=== PATIENT | female | born 1990 | race Caucasian/White ===

== ENCOUNTER → 2017-08-25 | Outpatient (CLI) | payer BC ==
[2015-06-06 03:00] VITALS: BP 127/74
[~2017-08-25] MED LIST: INSU100C4 SQ; LEVO25TA4 PO
--- NOTE | 2017-08-25 15:07 | RAD ---
Pelvic ultrasound 08/25/2017 Indication: Persistent pelvic pain Comparison study: None Discussion: Ultrasound evaluation of the pelvis was performed transabdominally and transvaginally. Static images were submitted to PACS. Findings: The uterus measures 7.8 x 4.5 x 3.5 cm. Endometrial thickness is best seen transvaginally measuring approximately 9 mm. Correlate with phase of the menstrual cycle. The uterus is otherwise unremarkable in appearance. Trace amount of free fluid is seen in the cul-de-sac most commonly physiologic premenopausal patient.. The right ovary measures 2.5 x 1.2 1.7 cm and is unremarkable in appearance. The left ovary measures 4.1 x 3.1 x 3.2 cm including a 3.3 cm simple appearing cyst. Blood flow the ovaries is noted on color Doppler imaging with spectral analysis. Visualized portions of the bladder is grossly unremarkable. Impression: 1. 3.3 cm simple appearing cyst, left ovary 2. Trace amount of free fluid in the pelvis which is most commonly physiologic in a premenopausal patient 3. Otherwise unremarkable pelvic ultrasound
== END | disposition home or self-care (01) ==
LOC: US 13:05
PROVIDERS: ATTEND Physician Assistant Medical
DX: R10.2 Pelvic and perineal pain (principal); F17.200 Nicotine dependence, unspecified, uncomplicated; Z72.89 Other problems related to lifestyle
CPT/HCPCS: 76830; 76856

== ENCOUNTER → 2018-02-28 | Outpatient (CLI) | payer BC ==
[2015-06-06 03:00] VITALS: BP 127/74
--- NOTE | 2018-02-28 14:53 | RAD ---
EXAM: PA and Lateral Views of the Chest DATE: 02/28/2018 10:50 AM INDICATION: SCHOOL PHYSICAL, PT WAS SHIELDED COMPARISON: No Prior FINDINGS: The heart is not enlarged. Mediastinal and hilar contours are normal. No focal parenchymal airspace opacity. No pleural effusion or pneumothorax. IMPRESSION: 1. No radiographic evidence for acute cardiopulmonary process. Electronically signed by: Rick Chambers MD (02/28/2018 2:50 PM) [facility]
== END | disposition home or self-care (01) ==
LOC: PMG 10:38
PROVIDERS: ATTEND Physician Assistant Medical
DX: Z02.0 Encounter for examination for admission to educational institution (principal)
CPT/HCPCS: 71046

== ENCOUNTER 2021-07-18 21:17 | Emergency (ER) | payer BC ==
[~2021-07-18] VITALS: Ht 167.6 cm; Wt 78.2 kg
--- NOTE | 2021-07-18 21:23 | PHYS DOC ---
Past History Past Medical History: Diabetes, Other Past Surgical History: Tonsillectomy, Other Alcohol Use: Occasionally Drug Use: None General Adult HPI: HPI: ",, I ve got an ear ache.. ".. My Lt ear.. I went to Urgent care and they sta rted me on Augmentin 875 and Cipro eardrops... But now I noticed to have blood and drainage from the left ear.... I am worried about having an mastoiditis'''" Patient is a 31 year old female who presents with above hx and complaints left otitis. Currently on Augmentin 875 and Cipro eardrops. Patient denies any history immunosuppression. Patient is known diabetic and sugars have been in the 300s. No recent travel. No specific ill contacts. No history of prior otitis media or mastoiditis. Patient normally follows with [facility] for care.. Review of Systems: Review of Systems: Constitutional: Denies fever or chills Eyes: Denies change in visual acuity HENT: Denies nasal congestion or sore throat Lt. otitis Respiratory: Denies cough or shortness of breath Cardiovascular: Denies chest pain or edema GI: Denies abdominal pain, nausea, vomiting, bloody stools or diarrhea : Denies dysuria Musculoskeletal: Denies back pain or joint pain Integument: Denies rash Neurologic: Denies headache, focal weakness or sensory changes Endocrine: Denies polyuria or polydipsia Lymphatic: Denies swollen glands Psychiatric: Denies depression or anxiety Family History: Family History: Noncontributory to presentation Current Medications: Current Meds: See nursing for home meds Allergies: Allergies: Allergies Coded Allergies Type Severity Reaction Last Updated Verified aspirin Allergy Unknown 05/31/14 No Uncoded Allergies Type Severity Reaction Last Updated Verified shanell Adverse Reaction Unknown 05/31/14 Physical Exam: PE: Constitutional: in acute distress, non-toxic appearance. [] HENT: Normocephalic, atraumatic, right external ears normal, oropharynx moist, no oral exudates, nose normal. TM on Lt has rupture with drainage of pus. Lt. Mastoid area somewhat tender. Does have adenopathy at angle of mandible. Eyes: PERRLA, EOMI, conjunctiva normal, no discharge. [] Neck: Normal range of motion, no tenderness, supple, no stridor. [] Cardiovascular:Heart rate regular rhythm, no murmur [] Lungs & Thorax: Bilateral breath sounds equal at apex auscultation [] Abdomen: Bowel sounds normal, soft, no tenderness, no masses, no pulsatile mas ses. [] Skin: Warm, dry, no erythema, no rash. [] Back: No tenderness, no CVA tenderness. [] Extremities: No tenderness, no cyanosis, no clubbing, ROM intact, no edema. [] Neurologic: Alert and oriented X 3, normal motor function, normal sensory function, no focal deficits noted. [] Psychologic: Affect normal, judgement normal, mood normal. [] EKG: EKG: [] Radiology/Procedures: Radiology/Procedures: [][place] [address] IMAGING REPORT Signed PATIENT: CAIO MARI ACCOUNT: [id number] : 1990 LOCATION: ER AGE: 31 SEX: F EXAM STATUS: REG ER ORD. PHYSICIAN: JANA BROWN MD REASON: CT mastoid- otitis, concern mastoid extension in Diabetic PROCEDURE: CT MAXILLOFACIAL WO CONTRAST EXAM: CT temporal bones without contrast. HISTORY: Diabetes. Mastoiditis. TECHNIQUE: CT of the temporal bones was performed without intravenous contrast. One or more of the following individualized dose reduction techniques were utilized for this examination: 1. Automated exposure control. 2. Adjustment of the mA and/or kV according to patient size. 3. Use of iterative reconstruction technique. COMPARISON: None. FINDINGS: There is fluid in the left middle ear cavity extending to the mastoid antrum. The more peripheral left mastoid air cells are normally aerated. No erosive change is identified. There is no swelling overlying the left mastoid or along the external auditory canal. The ossicles appear intact. The left cochlea and semicircular canals appear intact. On the right, the middle ear and mastoid air cells are normally aerated. The ossicles are intact. The cochlea and semicircular canals are intact. The paranasal sinuses are clear. Both ostiomeatal units are patent. Limited images of the orbits and brain are unremarkable. IMPRESSION: 1. Left middle ear effusion extending to the mastoid antrum. No erosive change. Ongoing follow-up is recommended. Electronically signed by: Rubens Wells MD (07/18/2021 11:31 PM) [place] DICTATED AND SIGNED BY: TOMEKA WELLS MD DATE: 07/18/212326 CC: JANA BROWN MD; LORIE ANTUNEZ ~MTH0 0 [place] [id number] IMAGING REPORT Signed PATIENT: CAIO MARI ACCOUNT: [id number] : 1990 LOCATION: ER AGE: 31 SEX: F EXAM STATUS: REG ER ORD. PHYSICIAN: JANA BROWN MD REASON: CT mastoid- otitis, concern mastoid extension in Diabetic PROCEDURE: CT MAXILLOFACIAL WO CONTRAST EXAM: CT temporal bones without contrast. HISTORY: Diabetes. Mastoiditis. TECHNIQUE: CT of the temporal bones was performed without intravenous contrast. One or more of the following individualized dose reduction techniques were utilized for this examination: 1. Automated exposure control. 2. Adjustment of the mA and/or kV according to patient size. 3. Use of iterative reconstruction technique. COMPARISON: None. FINDINGS: There is fluid in the left middle ear cavity extending to the mastoid antrum. The more peripheral left mastoid air cells are normally aerated. No erosive change is identified. There is no swelling overlying the left mastoid or along the external auditory canal. The ossicles appear intact. The left cochlea and semicircular canals appear intact. On the right, the middle ear and mastoid air cells are normally aerated. The ossicles are intact. The cochlea and semicircular canals are intact. The paranasal sinuses are clear. Both ostiomeatal units are patent. Limited images of the orbits and brain are unremarkable. IMPRESSION: 1. Left middle ear effusion extending to the mastoid antrum. No erosive change. Ongoing follow-up is recommended. Electronically signed by: Rubens Wells MD (07/18/2021 11:31 PM) [place] DICTATED AND SIGNED BY: TOMEKA WELLS MD DATE: 07/18/212326 CC: JANA BROWN MD; LORIE ANTUNEZ ~MTH0 0 Heart Score: C/O Chest Pain: N/A Risk Factors: Risk Factors: DM, Current or recent (<one month) smoker, HTN, HLP, family histo ry of CAD, obesity. Risk Scores: Score 0 - 3: 2.5% MACE over next 6 weeks - Discharge Home Score 4 - 6: 20.3% MACE over next 6 weeks - Admit for Clinical Observation Score 7 - 10: 72.7% MACE over next 6 weeks - Early Invasive Strategies Course & Med Decision Making: Course & Med Decision Making Pertinent Labs and Imaging studies reviewed. (See chart for details) Patient continue the Augmentin 875 and Cipro eardrops. As previously directed. Tylenol and ibuprofen for discomfort. Follow-up primary care. Return if any concerns. Must have better control of glucose levels. Regular diets and med use. Must have better control of glucose. Repeat CT of Mastoid and consider ENT consult. Impression: 1. Lt. Otitis Media 2. DM- [] Loco Disclaimer: Loco Disclaimer: This electronic medical record was generated, in whole or in part, using a voice recognition dictation system. Departure Departure: Referrals: LORIE ANTUNEZ (PCP) Loco Disclaimer This chart was dictated in whole or in part using Voice Recognition software in a busy, high-work load, and often noisy Emergency Department environment. It may contain unintended and wholly unrecognized errors or omissions. JANA BROWN MD Jul 18, 2021 21:23
[2021-07-18 21:27] VITALS: BP 143/84
[2021-07-18] MEDS ORDERED: cefTRIAXone IM 1 GM VIAL IM ONE (22:00)
[2021-07-18] MEDS ORDERED: oxyCODONE/APAP 5/325 1 TAB TABLET PO ONE (22:00)
--- NOTE | 2021-07-18 23:33 | RAD ---
EXAM: CT temporal bones without contrast. HISTORY: Diabetes. Mastoiditis. TECHNIQUE: CT of the temporal bones was performed without intravenous contrast. One or more of the [facility] individualized dose reduction techniques were utilized for this examination: 1. Automated exposure control. 2. Adjustment of the mA and/or kV according to patient size. 3. Use of iterative reconstruction technique. COMPARISON: None. FINDINGS: There is fluid in the left middle ear cavity extending to the mastoid antrum. The more mariely pheral left mastoid air cells are normally aerated. No erosive change is identified. There is no swel ling overlying the left mastoid or along the external auditory canal. The ossicles appear intact. The left cochlea and semicircular canals appear intact. On the right, the middle ear and mastoid air cells are normally aerated. The ossicles are intact. The cochlea and semicircular canals are intact. The paranasal sinuses are clear. Both ostiomeatal units are patent. Limited images of the orbits and brain are unremarkable. IMPRESSION: 1. Left middle ear effusion extending to the mastoid antrum. No erosive change. Ongoing follow-up is recommended. Electronically signed by: Rubens Wells MD (07/18/2021 11:31 PM) [facility]
[2021-07-18 23:43] LABS: BACTERIA,URINE 0 /HPF (0-FEW); CLARITY,URINE CLEAR; COLOR,URINE YELLOW; GLUCOSE,URINE 500 mg/dL (NEG); NITRITE,URINE NEG (NEG); RBC,URINE 0 /HPF (0-2); UROBILINOGEN,URINE 0.2 mg/dL (0.2 mg/dL); WBC,URINE 0 /HPF (0-4)
== END 2021-07-18 23:52 | disposition home or self-care (01) ==
LOC: ER 21:17
DX: H66.92 Otitis media, unspecified, left ear (principal); E11.9 Type 2 diabetes mellitus without complications; Z88.6 Allergy status to analgesic agent
CPT/HCPCS: 70486; 81001; 81025; 82947; 96372; 99284; J0696